=== PATIENT | male | born 1955 | race Caucasian/White ===

== ENCOUNTER → 2017-08-23 | Day surgery (SDC) | payer OTHER ==
[~2017-08-23] VITALS: Ht 177.8 cm; Wt 110.2 kg
[~2017-08-23] MED LIST: ACYC400T2 PO; CETI10CA PO; DOCU240C41 PO; HYDR25TA4 PO; HYDR50TA3 PO; INSU100I13 SUBQ; INSU100I18 SUBQ; INSU3INS2 SQ; LOSA100T29 PO; Lactated Ringer's 1,000 ML IV ONE; METF-496 PO; PANT40TA3 PO; Propofol 10,000 mCg/mL 20 mL Inj ONE; SILD20TA14 PO; SIMV40TA5 PO; TAMS0.4C98 PO; TRIA10.8 NS
[2017-08-23 08:01] VITALS: BP 129/83; PULSE 84; O2SAT 97
[2017-08-23 09:11] VITALS: BP 107/68; PULSE 86; RESP 14; O2SAT 96
[2017-08-23 09:21] VITALS: BP 117/68; PULSE 80; RESP 14; O2SAT 98
--- NOTE | 2017-08-23 09:28 | ENDO ---
[address] [address] ENDOSCOPY PROCEDURE PATIENT: NISHA ADORNO : 1955 MR#: [id number] ADMIT: 08/23/2017 JOB ID: [id number] DATE: 08/23/2017 PRIMARY PROVIDER: Dmitriy Chairez MD PROCEDURE: Colonoscopy. INDICATIONS: A 62-year-old male with a personal history of colon polyps returning for surveillance. EQUIPMENT: [id number]-H180AL SEDATION: Monitored anesthesia as provided by Dr. Markie Frances. COMPLICATIONS: None identified. BOWEL PREPARATION: Suboptimal in many locations requiring copious amounts of irrigation and suction. PROCEDURE INFO: After the risks and benefits were explained, written and verbal informed consent was obtained. The patient was brought into the endoscopy suite and placed in the left lateral decubitus position. Sedation was achieved using the above-stated medications with the addition of oxygen via nasal cannula. A digital rectal examination disclosed moderate to severely engorged external and internal large hemorrhoids. No bleeding. No thrombosis appreciated. The scope was introduced into the rectum and advanced to the cecum as identified by the appendiceal orifice and ileocecal valve. The scope was slowly withdrawn to carefully examine the mucosa for any defects or lesions. Retroflexed views were accomplished in the rectum. The colon was decompressed. The scope removed from the patient who tolerated the procedure well. FINDINGS: Within the limitations of bowel prep I did not appreciate any significant polyps or mass lesions throughout. No other significant pathology including retroflexed views. ENDOSCOPIC DIAGNOSIS: Large hemorrhoids. RECOMMENDATIONS: 1. Repeat colonoscopy in three years' time considering the suboptimal bowel prep conditions noted today. Anesthesia will be requested again. 2. The patient is encouraged to engage in some warm Epsom salt baths each evening to help with hemorrhoidal engorgement. He might also benefit from Preparation-H suppositories this week.
--- NOTE | 2017-08-23 09:35 | PCM.ANEP1 ---
Post Anesthesia PACU Phase 1 Assessment Vital Signs Vital Signs Date Time Temp Pulse Resp B/P Pulse Ox O2 Delivery O2 Flow Rate FiO2 08/23/17 09:21 80 14 117/68 98 Room Air 08/23/17 09:11 86 14 107/68 96 Room Air 08/23/17 08:01 84 129/83 97 Room Air Anesthetic Administered: MAC Level of Alertness: Awake, talking Pain: No Nausea or Vomiting: No CV Function & Hydration Stable: Yes Airway Device: Oxygen Delivery: Room Air Lungs: Clear to Auscultation PACU Phase 2 Assessment Complications: No Follow up Care: N/A Patient Instructions Provided: N/A Markie Frances MD Aug 23, 2017 09:35
--- NOTE | 2017-08-23 09:35 | PCM.HPANE ---
Patient Data Date of Service: Aug 23, 2017 Surgeon Admitting Provider: Attending Provider:Ranjith Moon MD Primary Care Physician:Dmitriy Chairez MD Other Provider:Belinda Todd Anesthesia Reason for Visit Other Polyp Of Colon Ht/WT & BMI Height (Feet): 5 Height (Inches): 10 Weight (Kilograms): 110.22 Body Mass Index 34.00 Allergies Coded Allergies: TIANA Inhibitors (Verified Allergy, Intermediate, 08/19/17) aspirin (Verified Allergy, Intermediate, 08/19/17) Past Anesthesia History Anesthesia History: Denies:: Abnormal Airway, Anesthesia Reactions, Difficult Intubation, Fam Anesthesia Reaction, Fam Malignant Hypertherm, Malignant Hyperthermia Diabetes History Hx Diabetes?: Yes Current Bedside Blood Glucose: 145 MRSA MRSA: No Medications Hypertension Medication: Yes Home Meds Incl Beta Liv: No Reported Medications Insulin Glargine/Lixisenatide (Soliqua 100 Unit-33 Mcg/ml Pen)100 Unit-33 Mcg/ Ml (3 Ml) Insuln.pen3 Ml SQ 08/19/17 Simvastatin 40 Mg Waemfh02 Mg PO HS 30 Days Ref 0 08/19/17 Metformin ER 1,000 Mg Tablet1,000 Mg PO DAILY Ref 0 08/19/17 Losartan Potassium 100 Mg Tvyrom585 Mg PO 08/19/17 Hydrochlorothiazide 50 Mg Gtpjnd09 Mg PO DAILY 30 Days Ref 0 08/19/17 Docusate Calcium (Stool Softener)240 Mg Dhnupld980 Mg PO 08/19/[address] 40 Mg Tablet.dr40 Mg PO DAILY Ref 0 05/10/16 Sildenafil Citrate (Sildenafil)20 Mg Spplhz74 Mg PO DAILY 05/10/16 Triamcinolone Acetonide (Nasacort)10.8 Ml Spray10.8 Ml NS 05/10/16 Insulin Glargine (Lantus U100 Solostar Insulin Pen)100 Unit/1 Ml Insuln.pen50 Unit SUBQ HS #1 PENINJ Ref 0 05/10/16 Insulin Lispro (HumaLOG U100 Insulin Pen)100 Unit/1 Ml Insuln.pen12 Unit SUBQ with meals #1 PENINJ Ref 0 Blood Sugar Lispro Correction <151 0 units 151-175 1 unit 176-200 2 units 201-225 3 units 226-250 4 units 251-275 5 units 276-300 6 units 301-325 7 units 326-350 8 units 351-375 9 units 376-400 10 units >400 12 units Check blood sugars before meals and at bedtime. Use correction factor only before meals. 05/10/16 Tamsulosin (Flomax)0.4 Mg Capsule0.4 Mg PO DAILY Ref 0 05/10/16 Cetirizine HCl (Zyrtec)10 Mg Xzjbyci55 Mg PO HS #30 CAPSULE Ref 0 05/10/16 Acyclovir 400 Mg Hlpoxu498 Mg PO DAILY PRN pa Ref 0 05/10/16 Discontinued Reported Medications Hydrochlorothiazide 25 Mg Gbjehc14 Mg PO DAILY 30 Days Ref 0 08/19/17 Simvastatin-Expunged Drug, Choose New Med! 40 Mg Fkdtma54 Mg PO DAILY 05/26/12 Losartan-Expunged Drug, Do Not Renew! 100 Mg Zqjbln075 Mg PO DAILY 05/26/12 Metformin-Expunged Drug, Do Not Renew! 1,000 Mg Tab.er.241,000 Mg PO BID 05/26/12 History History of ENT Problems?: No HEENT History: Denies:: Abnormal Airway Difficult Intubation Dysphagia Hearing Problem Denture Type: None Teeth Condition: Broken Teeth Hx of Heart Problems?: No Cardiovascular History: Positive for:: Hypertension (CONTROLLED) Denies:: AICD Atrial Fibrillation Chest Pain Congestive Heart Failure Pacemaker Valvular Heart Disease Hx of Respiratory Problem?: No Respiratory History: Denies:: Asthma COPD Cough Hemoptysis Pneumonia Tuberculosis Other Resp Pertinent History: CHRONIC SINUS ISSUES ZYRTEC FOR CONTROL Hx Neurologic Problems?: No Neurological History: Denies:: CVA Hx of GI Problems?: Yes Hx of Problems?: No Male Hx: Denies:: Prostate Problems Hx Musculoskeletal Problems?: No Musculoskeletal History: Denies:: Fibromyalgia Joint Replacement Hx of Psycho/Social Problems?: No Psycho Social History: Denies:: Anxiety Hx Depression Hx Surgeries?: Yes ( appy tonsillectomy sinus) Hx Any Other Health Problems?: Yes Hx Diabetes: YesBedside Blood Glucose: 145 Hx Alcohol Use: Yes (COUPLE GLASSES WEEK) Smoking Status: Former Smoker Stop/Bang Treated for Sleep Apnea?: Yes Do You Have a CPAP Machine?: Yes S-Snoring: Do You Snore Loudly: Yes T-Tired: feel tired, fatigued: No O-Obsered: Observed not breath: Yes P-Blood Pressure: treated: Yes B- Body Mass Index > 35 kg/m2: Yes A- Age over 50: Yes N- Neck Large Circumference: Yes G- Gender Male: Yes INGRID Total Score: 7 INGRID Risk Assessment: High Risk, =/>3 Yes INGRID Category 2: Yes Risk Assessment Category Category 1A: Patient has history of documented sleep apnea, and HAS NOT received any narcotic, sedative or anesthesia administration during this stay. Category 1B: Patient has history of documented sleep apnea, and HAS received any narcotic , sedative or anesthesia administration during this stay Category 2: Patient has SUSPECTED Obstructive Sleep Apnea, and HAS received any narcotic , sedative or anesthesia administration during this stay. Category 3: Patient has SUSPECTED Obstructive Sleep Apnea and HAS NOT received narcotic, sedative or anesthesia administration during this stay. Category 4: Outpatient in Procedural Areas with known sleep apnea or who screen positive for High Risk via the STOP/BANG questionnaire. Exam Exam Vital Signs Vital Signs Date Time Temp Pulse Resp B/P Pulse Ox O2 Delivery O2 Flow Rate FiO2 08/23/17 09:21 80 14 117/68 98 Room Air 08/23/17 09:11 86 14 107/68 96 Room Air 08/23/17 08:01 84 129/83 97 Room Air General Appearance: Alert, Oriented X3 HEENT/AIRWAY: MP 3 Lungs: Clear to Auscultation Heart: Exam Unremarkable Meds/Labs/Diagnostics Admission Meds Current Medications Lactated Ringer's (Lr) 1,000 ml @ 10 mls/hr Q24H ONCE IV Last administered on 08/23/17t 08:51; Start 08/23/17 at 06:00; Stop 08/24/17 at 05:59 Bedside Blood Glucose: 145 Plan Impression Patient chart reviewed, patient interviewed and anesthestic plan with risks, benefits, and alternatives discussed, and informed consent obtained. NPO per Anesth. Guidelines: Yes ASA Physical Status: ASA3 Severe Disease Anesthetic Plan: MAC Bene/Risks/Altern/Consents: Yes HP Complete Prior to Induction: Yes Markie Frances MD Aug 23, 2017 09:35
== END | disposition home or self-care (01) ==
LOC: END 00:20
PROVIDERS: ATTEND Internal Medicine Gastroenterology
DX: Z12.11 Encounter for screening for malignant neoplasm of colon (principal); Z86.010 Personal history of colon polyps; K64.9 Unspecified hemorrhoids; I10 Essential (primary) hypertension; E11.65 Type 2 diabetes mellitus with hyperglycemia; E78.5 Hyperlipidemia, unspecified; R26.81 Unsteadiness on feet; R25.1 Tremor, unspecified; K22.70 Barrett's esophagus without dysplasia; G47.33 Obstructive sleep apnea (adult) (pediatric); K21.9 Gastro-esophageal reflux disease without esophagitis; Z79.84 Long term (current) use of oral hypoglycemic drugs; Z79.4 Long term (current) use of insulin; Z87.891 Personal history of nicotine dependence
CPT/HCPCS: G0105; J2704; J7120